=== PATIENT | male | born 1975 | race Caucasian/White ===

== ENCOUNTER 2019-06-24 19:22 | Emergency (ER) | payer MEDICAID ==
[~2019-06-24] VITALS: Ht 177.8 cm; Wt 83.0 kg
[2019-06-24] MEDS ORDERED: METOCLOPRAMIDE HCL 10MG/2ML VIAL IV ONE (21:00)
[2019-06-24] MEDS ORDERED: SODIUM CHLORIDE 0.9% 1,000 ML IV ONE (21:00)
[2019-06-24] MEDS ORDERED: DIPHENHYDRAMINE 50MG/ML VIAL IV ONE (21:00)
[2019-06-24] MEDS ORDERED: KETOROLAC 60MG/2ML VIAL IM ONE (21:00)
[2019-06-24 22:48] VITALS: BP 140/84
== END 2019-06-24 22:49 | disposition home or self-care (01) ==
LOC: ER 19:22
DX: G43.909 Migraine, unspecified, not intractable, without status migrainosus (principal)
CPT/HCPCS: 96372; 96374; 96375; 99283; J1200; J1885; J2765; J7030

== ENCOUNTER 2020-06-15 18:48 | Emergency (ER) | payer MEDICAID ==
[~2020-06-15] VITALS: Ht 177.8 cm; Wt 86.0 kg
[2020-06-15] MEDS ORDERED: ACETAMINOPHEN 325MG TABLET PO ONE (19:15)
[2020-06-15] MEDS ORDERED: ONDANSETRON HCL 4MG/2ML INJ IV ONE (19:15)
[2020-06-15] MEDS ORDERED: SODIUM CHLORIDE 0.9% 1,000 ML IV ONE (19:15)
[2020-06-15] MEDS ORDERED: METOCLOPRAMIDE HCL 10MG/2ML VIAL IV ONE (21:30)
[2020-06-15] MEDS ORDERED: KETOROLAC 15MG/ML VIAL IV ONE (21:30)
[2020-06-15] MEDS ORDERED: MAGNESIUM 1 G PREMIX 100 ML IV ONE (21:30)
[2020-06-15 23:10] VITALS: BP 149/87
== END 2020-06-15 23:05 | disposition home or self-care (01) ==
LOC: ER 18:48
DX: G43.909 Migraine, unspecified, not intractable, without status migrainosus (principal)
CPT/HCPCS: 93005; 96361; 96365; 96375; 99284; J1885; J2405; J2765; J3475; J7030